=== PATIENT | female | born 1945 | race Caucasian/White ===

== ENCOUNTER 2016-11-09 08:18 | Emergency (ER) | payer BC ==
[~2016-11-09] VITALS: Ht 162.6 cm; Wt 65.0 kg
[~2016-11-09 08:18] MED LIST: RISE150T PO
[2016-11-09 08:22] VITALS: TEMP 36.9; Ht 162.6 cm; Wt 65.0 kg
[2016-11-09] MEDS ORDERED: PROM25SU28 PR (08:40)
[2016-11-09] MEDS ORDERED: KETOROLAC TROMETHAMINE 30 MG/ML VIAL IV STA (08:43)
[2016-11-09] MEDS ORDERED: DiphenhydrAMINE HCL 50 MG/ML VIAL IV STA (08:43)
[2016-11-09] MEDS ORDERED: SODIUM CHLORIDE 0.9% 1000ML 1,000 ML IV STA (08:43)
[2016-11-09] MEDS ORDERED: PROMETHAZINE HCL INJ 25 MG in SODIUM CHLORIDE 0.9% 50ML 50 ML IV STA (08:43)
[2016-11-09] MEDS ORDERED: DEXAMETHASONE SOD INJ 10 MG/ML VIAL IV ONE (08:45)
--- NOTE | 2016-11-09 08:59 | EMERGENCY ROOM VISIT NOTE ---
ED Visit Note First contact with patient: 08:28 I have seen and examined this patient with Dahiana Lorenz and generally agree with the treatment plan as discussed. Problem List Medical Problems: (1) Bladder cancer Status: Resolved Current/Historical Medications Scheduled Aspirin (Aspirin Ec), 81 MG PO DAILY Citalopram (Celexa *), 20 MG PO QPM Fesoterodine Fumarate (Toviaz), 4 MG PO DAILY Simvastatin (Simvastatin), 20 MG PO DAILY Scheduled PRN Ipratropium [place] (Atrovent Nasal [place] 0.06% *), 1-2 SPRAYS CARLEE DAILY PRN for ALLERGIES Promethazine Hcl (Phenergan Suppository), 25 MG ID Q6H PRN for Nausea Rizatriptan Benzoate (Maxalt-Hydraulic Jack Operator), 10 MG PO DAILY PRN for Migraine Allergies Coded Allergies: Gabapentin (Verified Allergy, Unknown, disoriented, 11/09/16) Topiramate (Verified Allergy, Unknown, disorientation, 11/09/16) Codeine (Unverified Adverse Reaction, Mild, NAUSEA, 11/09/16) Vital Signs Date Time Temp Pulse Resp B/P Pulse Ox O2 Delivery O2 Flow Rate FiO2 11/09/16 08:22 36.9 104 18 135/84 99 Room Air Departure Information Referrals Juan Daniel Sibley M.D. (PCP) Patient Instructions A Signature Page, [facility]
[2016-11-09] MEDS ORDERED: CLX20 PO (09:25)
--- NOTE | 2016-11-09 09:36 | DIAGNOSTIC IMAGING REPORT ---
CT HEAD WITHOUT CONTRAST (CT) CLINICAL HISTORY: Severe headache COMPARISON STUDY: MRI the brain dated 03/27/2009 TECHNIQUE: Axial CT of the brain is performed from the vertex to the skull base. IV contrast was not administered for this examination. CT DOSE: 638.56 mGycm FINDINGS: No intra or extra-axial mass lesions are visualized. There is no CT evidence of acute cortical infarction. There is no evidence of midline shift. There is no acute hemorrhage. No calvarial fractures are visualized. There are minimal white matter hypodensities likely on a small vessel basis. There is no evidence of pathologic ventricular dilatation. There is no evidence of acute sinusitis IMPRESSION: No acute intracranial findings Electronically signed by: Jayden Reyez M.D. 11/09/2016 9:34 AM Dictated Date/Time: 11/09/2016 9:33 AM
[2016-11-09] MEDS ORDERED: RIZA10TA19 PO (09:45)
[2016-11-09] MEDS ORDERED: ATRIN6 NAE (11:17)
[2016-11-09] MEDS ORDERED: MECL1TAB42 PO (11:54)
--- NOTE | 2016-11-09 11:57 | EMERGENCY ROOM VISIT NOTE ---
History First contact with patient: 08:28 Chief Complaint: HEADACHE Stated Complaint: MIGRAINE History of Present Illness The patient is a 71 year old female who presents to the Emergency Room with complaints of headache which started yesterday. She states the headache started behind her right eye and now has migrated above the right eye and across the forehead. Headache started this morning at 5 AM. The patient also states that she was very dizzy yesterday and has slight dizziness today. She also admits to nausea but no vomiting. The patient denies any other visual changes. The patient denies any recent URI symptoms. The patient denies any abdominal pain. The patient has a history of migraine headaches. She states normally if she takes her Maxalt it relieves her headache. She took it immediately without any results. She did take a second dose without any relief. She also took some Pepto-Bismol for her nausea yesterday and took Phenergan suppository this morning but then she states that she moved her bowels immediately so she took a second Phenergan suppository. The patient does state that she is feeling slightly better than she was earlier. The patient states this is not the worst headache of her life but it is more severe than her normal migraines. Review of Systems 10 system review was performed and was negative unless stated otherwise history of present illness. Past Medical/Surgical History Medical Problems: (1) Bladder cancer Family History Diabetes mellitus Heart disease Hypertension Social History Smoking Status: Never Smoker Marital Status: Housing Status: lives with family Current/Historical Medications Scheduled Aspirin (Aspirin Ec), 81 MG PO DAILY Citalopram (Celexa *), 20 MG PO QPM Fesoterodine Fumarate (Toviaz), 4 MG PO DAILY Simvastatin (Simvastatin), 20 MG PO DAILY Scheduled PRN Ipratropium [place] (Atrovent Nasal [place] 0.06% *), 1-2 SPRAYS CARLEE DAILY PRN for ALLERGIES Promethazine Hcl (Phenergan Suppository), 25 MG LA Q6H PRN for Nausea Rizatriptan Benzoate (Maxalt-Professor [employer] Art History), 10 MG PO DAILY PRN for Migraine Allergies Coded Allergies: Gabapentin (Verified Allergy, Unknown, disoriented, 11/09/16) Topiramate (Verified Allergy, Unknown, disorientation, 11/09/16) Codeine (Unverified Adverse Reaction, Mild, NAUSEA, 11/09/16) Physical Exam Vital Signs Date Time Temp Pulse Resp B/P Pulse Ox O2 Delivery O2 Flow Rate FiO2 11/09/16 11:20 76 18 139/95 11/09/16 10:19 143/92 11/09/16 09:40 97 20 158/138 98 Room Air 11/09/16 08:22 36.9 104 18 135/84 99 Room Air Physical Exam GENERAL: 71-year-old white female appears uncomfortable secondary to migraine headache. MENTAL STATUS: Patient is alert and oriented x3 EYES: PERRLA. EOMs intact. EARS: Canals clear. TMs without fluid level noted. NECK: Supple, no lymphadenopathy noted. No carotid bruits noted. LUNGS: Clear auscultation without wheezes rales or rhonchi. CARDIAC: Regular rate and rhythm without murmur. Pulses is full and equal throughout. ABDOMEN: Positive bowel sounds all 4 quadrants. Soft, nontender to palpation without organomegaly or masses. NEURO:Cranial nerves two through 12 intact. Cerebellar function intact with [id number]. Fine motor intact with alternating finger motions. Medical Decision & Procedures ER Provider Diagnostic Interpretation: CT HEAD WITHOUT CONTRAST (CT) CLINICAL HISTORY: Severe headache COMPARISON STUDY: MRI the brain dated 03/27/2009 TECHNIQUE: Axial CT of the brain is performed from the vertex to the skull base. IV contrast was not administered for this examination. CT DOSE: 638.56 mGycm FINDINGS: No intra or extra-axial mass lesions are visualized. There is no CT evidence of acute cortical infarction. There is no evidence of midline shift. There is no acute hemorrhage. No calvarial fractures are visualized. There are minimal white matter hypodensities likely on a small vessel basis. There is no evidence of pathologic ventricular dilatation. There is no evidence of acute sinusitis IMPRESSION: No acute intracranial findings Electronically signed by: Jayden Reyez M.D. 11/09/2016 9:34 AM Dictated Date/Time: 11/09/2016 9:33 AM Medications Administered Medications (Trade) Dose Ordered Sig/Patti Route Start Time Stop Time Status Last Admin Dose Admin Sodium Chloride 1,000 ml @ 999 mls/hr Q1H1M STAT IV 11/09/16 08:43 11/09/16 09:43 DC 11/09/16 09:00 999 MLS/HR Promethazine HCl/ Sodium Chloride (Phenergan Inj/ Nss 50ml) 51 ml @ 204 mls/hr NOW STAT IV 11/09/16 08:43 11/09/16 08:57 DC 11/09/16 08:57 204 MLS/HR Ketorolac Tromethamine (Toradol Inj) 30 mg NOW STAT IV 11/09/16 08:43 11/09/16 08:48 DC 11/09/16 08:59 30 MG Diphenhydramine HCl (Benadryl Inj) 25 mg NOW STAT IV 11/09/16 08:43 11/09/16 08:48 DC 11/09/16 08:58 25 MG Dexamethasone Sodium Phosphate (Decadron Inj) 10 mg NOW ONCE IV 11/09/16 08:45 11/09/16 08:48 DC 11/09/16 08:59 10 MG ED Course The patient was evaluated. IV access was obtained. Patient was given 1 L normal saline wide-open. The patient was given Toradol 30 mg IV, Phenergan 25 mg IV, Benadryl 25 mg IV and Decadron [address] of the head was ordered and interpreted by the radiologist as above without any acute findings. When the patient came back from her CAT scan the nurse felt that her speech was a lot slower. I reevaluated the patient. She did not have any neurologic deficit. Strength was normal bilateral upper and lower extremities. The patient was independently evaluated by Dr. Stark who agreed with treatment plan. She will be observed to see if she has any worsening of her symptoms. Symptoms possibly could be coming from the medications. Patient was observed for an additional 90 minutes without any worsening of symptoms. The patient's headache and nausea had completely resolved. She was having dizziness but due to her slurred speech slow speech from prior medication she received I do not wish to give her any additional meclizine. The patient was discharged home in stable condition. Medical Decision Differential diagnosis include migraine headache, neoplasm, acoustic neuroma, benign positional vertigo, eustachian tube dysfunction I felt that the patient's leg symptoms after receiving the Phenergan were due to the medication. Also due to the multiple medications that she received including Phenergan and Benadryl her speech was slow but she did not have any neurologic deficit or any facial droop therefore the patient was observed for 90 minutes without any worsening of symptoms. Impression Primary Impression: Headache Additional Impression: Vertigo Departure Information Dispostion Home / Self-Care Condition GOOD Prescriptions Meclizine Hcl (MECLIZINE HCL) 25 Mg Tab 1 TAB PO TID Y for Dizziness or Vertigo for 10 Days, #30 TAB Prov: Dahiana Lorenz PA-C 11/09/16 Referrals Juan Daniel Sibley M.D. (PCP) Forms HOME CARE DOCUMENTATION FORM, IMPORTANT VISIT INFORMATION Patient Instructions A Signature Page, ED Headache Migraine, ED Vertigo Unspecified, [facility] Additional Instructions Do not move your head quickly. Make sure used stand up slowly. Take meclizine every 8 hours as needed for dizziness. If you have any worsening of symptoms such as facial droop, extremity weakness return to ER immediately. Follow-up with your family doctor in one to 2 days for recheck.
[2016-11-09 12:32] VITALS: BP 137/84; PULSE 71; O2SAT 96
[2016-11-09] MEDS ORDERED: FESO4TAB PO (15:59)
[2016-11-09] MEDS ORDERED: SIMV-151 PO (15:59)
[2016-11-09] MEDS ORDERED: ASPI81TA28 PO (16:03)
== END 2016-11-09 12:34 | disposition home or self-care (01) ==
LOC: C.EDB 08:20 → C.EDA 12:34
DX: G43.909 Migraine, unspecified, not intractable, without status migrainosus (principal); R42 Dizziness and giddiness; Z85.51 Personal history of malignant neoplasm of bladder; Z79.82 Long term (current) use of aspirin; Z83.3 Family history of diabetes mellitus; Z82.49 Family history of ischemic heart disease and other diseases of the circulatory system

== ENCOUNTER → 2016-11-18 | Outpatient (CLI) | payer BC ==
[~2016-11-18] MED LIST changes: +ASPI81TA28 PO; +ATRIN6 NAE; +CLX20 PO; +FESO4TAB PO; +GADAVIST IV PRN; +MECL1TAB42 PO; +PROM25SU28 PR; -RISE150T PO; +RIZA10TA19 PO; +SIMV-151 PO
--- NOTE | 2016-11-18 10:04 | DIAGNOSTIC IMAGING REPORT ---
MRI OF THE BRAIN WITHOUT AND WITH IV CONTRAST CLINICAL HISTORY: Migraine headaches. Vertigo. COMPARISON STUDY: MRI of the brain March 27, [address] November 09, 2016. TECHNIQUE: Utilizing a 0.7 Camille open magnet and dedicated coil, multiplanar, multiecho imaging of the brain was performed pre and postcontrast administration. IV administration of 6.5 mL of Gadavist contrast was uneventful. FINDINGS: There are no areas of restricted diffusion. No acute intracranial hemorrhage, midline shift or mass effect is present. Brain volume is normal. Ventricular system is normal. The basilar cisterns are patent. There are no extra-axial collections. Flow-voids for the major intracranial vessels are present. No intracranial mass or pathologic enhancement is present. No areas of signal abnormality are identified. There is minimal mucosal thickening of the left maxillary sinus. There is no fluid within the mastoid air cells. Calvarial signal is maintained. IMPRESSION: Unremarkable MRI of the brain. Electronically signed by: Terry Goldberg M.D. 11/18/2016 10:02 AM Dictated Date/Time: 11/18/2016 9:58 AM
== END | disposition home or self-care (01) ==
LOC: C.OPENMRI 08:55
PROVIDERS: ATTEND Internal Medicine Geriatric Medicine
DX: R51 Headache (principal)

== ENCOUNTER → 2017-03-23 | Outpatient (CLI) | payer BC ==
[~2017-03-23] VITALS: Ht 163.8 cm; Wt 68.3 kg
[~2017-03-23] MED LIST changes: -GADAVIST IV PRN; -MECL1TAB42 PO
[2017-03-23 12:29] VITALS: BP 135/79; PULSE 90; Ht 163.8 cm; Wt 68.3 kg
== END | disposition home or self-care (01) ==
LOC: C.NEUR 11:50
PROVIDERS: ATTEND Internal Medicine Pulmonary Disease
DX: R40.0 Somnolence (principal); G47.30 Sleep apnea, unspecified

== ENCOUNTER → 2017-05-11 | Outpatient (CLI) | payer BC ==
--- NOTE | 2017-05-12 07:32 | PAP/PSG TECHNICIAN REPORT ---
[facility] Touch Up Worker Polysomnogram Report Study name: None Report date: 05/12/2017 Study date: 05/11/2017 Referring Physician: Ricco Cortés M.D. Name: JUAN LUIS OSORIOLINE Interpreting Physician: Ricco Cortés M.D. Date of : 1945 Touch Up Worker: Laura Kendall RPS. Sex: Female Age: 72 StudyType: PSG PAP Weight: 150.5 lbs Height: 72 years, Height 5' 4.5" Neck Circum: 14 inches BMI: 25.43 Medications: Aspirin 81 mg, Atorvastatin, Citalopram, Ipratropium, Lorazepam, Probiotic, Promethagan, Rizatriptan, Simvastatin, Terbinafine, Toviaz, Vitamin D Patient History 72 yr. old female here for a new titration sleep study. Patient had a HST that showed an MONIQUE of 37.7 average over three nights. Patients [place] Sleepiness Scale Score 10/24. Parameters Monitored NPSG: E1-M2, E2-M1, Fp1-M2, Fp2-M1, F3-M2, F4-M2, F4-M1, C3-M2, C4-M2, C4-M1, O1-M2, O2-M2, O2-M1, T3-M2, T4-M1, P3-M2, P4-M1, CHIN1, CHIN2, HR, EKG, Legs, PFLOW, SNOR, FLOW, CFLOW, Tidal Volume, THOR, ABDO, SpO2, PLTH, CPRESS, ETCO2 Wave, ETCO2, pH Sleep Architecture Sleep Stages Time at Lights Off 9:57:20 PM STAGES Time (min.) TST (%) Time at Lights On 5:20:20 AM Wake 74.5 -- Total Recording Time (TRT) 444.00 min. N1 66.5 18 Total Sleep Period (TSP) 434.0 min. N2 251.5 68 Total Sleep Time (TST) 368.5min. N3 27.5 7 Awake Time 74.5 min. REM 23.0 6 Wake after Sleep Onset 65.5 min. Sleep Efficiency (SE) 83 % Sleep Onset Latency (REY) 9.0 min. Number of Stage 1 Shifts None Awakenings 33 Stage Changes 162 Number of REM periods 1 REM 23.0 6 REM Latency 171.0 min. NREM 345.5 94 Body Position Analysis Supine Right Left Side Prone Vertical Total Sleep Time (min.) 18.0 213.2 145.6 358.80 0.0 15.7 Total Sleep Time (%) 2% 58% 40% 97 0% 100% Total Sleep Time REM (min.) 0.0 23.0 0.0 None 0.0 0.0 Total Sleep Time NREM (min.) 7.5 190.2 145.6 None 0.0 2.2 Intermittent Wake (min.) 10.5 38.9 11.5 None 0.0 13.5 Total Sleep Period (%) 4% None None None None None Arousals Myoclonus (PLM) * Events Count Index Events Count Index Spontaneous 8 1 Events Awake (PLMW) 113 91.0 Respiratory 3 0.7 Events Asleep w/ Arousal (PLMA) 95 15.5 PLM 92 15 Events Asleep w/o Arousal (PLMS) 166 27.0 Snoring 8 1 Total Asleep 261 42.5 Total 111 18 Total 374 51 Respiratory Analysis * CA OA MA CH H RERA Total Count 22 2 0 0 55 0 79 Index 3.6 0.3 0.0 0 9.0 0 12.9 Mean Duration 16.8 14.0 0.0 0.00 18.2 0.0 17.7 Longest Duration 25.5 17.3 0.0 0.00 0.0 0.0 29.8 Respiratory Event Summary Total Supine ~Supine Right Left Prone REM NREM Apneas Count 24 0 24 1 23 N/A 1 23 Index 3.9 0 4 0.3 9.5 N/A 3 4 Hypopneas (4% Desat) Count 55 1 54 19 35 N/A 1 54 Index 9.0 8.0 9 5.3 14.4 N/A 2.6 9.4 Apneas & All Hypopneas Count 79 1 78 20 58 N/A 2 77 Index 12.9 8 13 6 24 N/A 5.2 13.4 Respiratory Events (Aurist+All Hyp+RERA) Count 79 1 78 20 58 N/A 2 77 Index 12.9 8 13 5.6 23.9 N/A 5.2 13.4 Respiratory Related Arousal Count 3 1 3 0 3 N/A 0 4 Index 0.7 8 0 0 1 N/A 0 1 Snoring Analysis Supine Right Left Prone REM NREM Total Snore duration 1.4 min Snores count 1 20 8 N/A 0 29 29 Snore mean duration 2.9 Sec Snores index 8 6 3 N/A 0.0 5.0 4.7 TST with snoring (%) 0.4% Desaturation Event Summary: Minimum %SpO2 Event Count Mean/Min/Max Duration(sec.) Desaturation Index % Time In Bed > 90 125 23.1 / 9.5 / 60.0 17.7 95.7 86 - 90 6 16.4 / 11.0 / 27.8 18.9 4.3 81 - 85 0 N/A 0.0 0.0 76 - 80 0 N/A 0.0 0.0 71 - 75 0 N/A 0.0 0.0 66 - 70 0 N/A 0.0 0.0 61 - 65 0 N/A 0.0 0.0 56 - 60 0 N/A 0.0 0.0 51 - 55 0 N/A 0.0 0.0 < 50 0 N/A 0.0 0.0 Total REM NREM Awake <50% 0.0 min. 0.0 min. 0.0 min. 0.0 min. 51 - 60% 0.0 min. 0.0 min. 0.0 min. 0.0 min. 61 - 70% 0.0 min. 0.0 min. 0.0 min. 0.0 min. 71 - 80% 0.0 min. 0.0 min. 0.0 min. 0.0 min. 81 - 90% 19.1 min. 0.0 min. 16.1 min. 3.0 min. 91 - 100% 423.6 min. 23.0 min. 329.5 min. 71.2 min. Average 93 93 93 94 Minimum SpO2 86 91 86 87 Desaturation Event Index 16.9 5.2 16.7 22.6 # Desat. Events below 89% 16 N/A 15 1 Time(%) with Saturation below 89% 0.7 0.0 0.7 0.0 Time(min.) with Saturation below 89% 3.1 0.0 2.9 0.1 Time (mins) REM (mins) NREM (mins) % of TST SpO2 Below 90% 55 N/A N55 2.0 SpO2 Below 88% 5 0 0 0 Heart Rate Analysis Min (bpm) Max (bpm) Average (bpm) Awake 55 92 65 NREM 53 77 60 REM 60 75 67 Overall 53 77 61 Supplemental O2 Values Minimum O2 level: None Value Start Time End Time Touch Up Worker Comments Mrs. Osorio slept in the right, left, and supine positions. No cardiac arrhythmia. Frequent PLMs noted. No bruxism noted. CPAP was initiated at +4 CMH2O room air and up-titrated to a level of + 9 CMH2O Cflex 2 , which nearly eliminated all respiratory events and snoring. A ResMed Ayala FX nasal mask was used during titration. Mrs. Osorio did not wake to use the restroom during the night. Mrs. Osorio stated, "(Example) I did not sleep as well as I do when I am in my own bed". The final report will be interpreted and signed by a sleep physician. The completed physician report will then be placed in the patient medical record. Therapy Event: Therapy (cm H20) 4 5 6 7 8 9 Total Time at Pressure (min.) 22.6 12.5 107.8 48.0 180.9 71.2 TST at Pressure (min.) 9.1 12.5 98.3 45.5 150.4 52.7 # Periods 1 1 1 1 1 1 Sleep Onset (min.) 9.0 0.0 0.0 0.0 0.0 0.0 REM Onset (min.) N/A N/A N/A 37.1 0.0 N/A Sleep Efficiency % 40 100 91 94 83 74 Wakefulness (%) 59.7 0.0 8.8 5.2 16.9 26.0 Wakefulness (min.) 13.5 0.0 9.5 2.5 30.5 18.5 NREM 1 (%) 19.9 0.0 17.2 7.3 15.5 16.9 NREM 1 (min.) 4.5 0.0 18.5 3.5 28.0 12.0 NREM 2 (%) 20.4 98.7 62.6 55.4 55.2 57.1 NREM 2 (min.) 4.6 12.4 67.4 26.6 99.8 40.7 NREM 3 (%) 0.0 1.3 11.4 9.4 5.8 0.0 NREM 3 (min.) 0.0 0.2 12.3 4.5 10.5 0.0 REM (%) 0.0 0.0 0.0 22.7 6.7 0.0 REM (min.) 0.0 0.0 0.0 10.9 12.1 0.0 # Arousals 1 0 9 5 54 42 Arousal Index 6.6 0.0 5.5 6.6 21.5 47.9 # Snore 0 1 4 6 11 7 Snore Index 0.0 4.8 2.4 7.9 4.4 8.0 AHI 85.6 71.7 15.9 6.6 6.0 5.7 AHI Supine N/A N/A N/A N/A N/A 8.0 AHI Non-Supine 85.6 71.7 15.9 6.6 6.0 5.3 NREM AHI 85.6 71.7 15.9 6.9 6.1 5.7 REM AHI N/A N/A N/A 5.5 5.0 N/A RDI 85.6 71.7 15.9 6.6 6.0 5.7 # Obstructive 0 0 2 0 0 0 # Central Ap 6 8 6 1 0 1 # Mixed 0 0 0 0 0 0 # Hypopneas 7 7 18 4 15 4 RERAS 0 0 0 0 0 0 Total Respiratory Events 13 15 26 5 15 5 Time Below SpO2 89.00% (min.) 1.4 1.4 0.2 0.0 0.0 0.0 Mean NREM SpO2 (%) 90 91 93 93 93 94 Mean REM SpO2 (%) N/A N/A N/A 93 93 N/A Mean Sleep SpO2 (%) 90 91 93 93 93 94 Min NREM SpO2 (%) 86 87 88 89 89 89 Min REM SpO2 (%) N/A N/A N/A 91 91 N/A Position Supine (min.) 0.0 0.0 0.0 0.0 0.0 7.5 Position Non-supine (min.) 9.1 12.5 98.3 45.5 150.4 45.2 LM Index Sleep 6.6 0.0 23.2 17.2 61.4 62.7 LM Index NREM 6.6 0.0 23.2 22.6 66.4 62.7 LM Index REM N/A N/A N/A 0.0 5.0 N/A Mean Heart Rate (bpm) 60 59 60 64 61 59 Min Heart Rate (bpm) 57 56 55 57 55 53
--- NOTE | 2017-05-14 08:44 | Sleep Study ---
Sleep Study Report Date of Service: May 11, 2017 Sleep Study Report Clinical data: Patient is a 72-year-old female with a BMI of 25.4 with severe sleep apnea documented on a home sleep apnea test with an MONIQUE of 37.7. Her [place] sleepiness score was 10/24. Sleep architecture: Total sleep time was 368.5 minutes divided between 345.5 minutes of non-REM sleep and 23 minutes of REM sleep. Sleep latency was 9 minutes. REM latency was delayed at 171 minutes. Sleep efficiency was 83 percent. Wake after sleep onset was 65.5 minutes. Sleep consisted of stage N1 18 percent, stage N2 68 percent, stage N3 7 percent, and REM 6 percent. Arousal data: 111 arousals were recorded for an index of 18 per hour. Ninety- two were due to PLMS events. PLM data: Significant PLMD was noted. There are 261 limb movements during sleep noted for an index of 42.5 per hour with an arousal index of 15.5 per hour Respiratory data: The AHI was 12.9. There were 22 central and 2 obstructive apneic episodes. The longest episode of apnea was 25.5 seconds. There were 55 hypopneas, the mean duration of which was 18.2 seconds. Oximetry data: Mild nocturnal hypoxemia was seen. Oxygen roxy was 86 percent during non-REM sleep. Mean saturation was 93 percent. Time below 80 percent was 5 minutes. EKG: Heart rate ranged from 53 to 77 beats per minute. No arrhythmias were noted. Treatment summary: The patient slept in the right, left, and supine positions. A ResMed Ayala FX nasal mask was used. The patient was titrated up to a final pressure of 9 centimeters water C flex 2. At that pressure setting, the patient slept for 52.7 minutes with an AHI of 5.7. Impression: Severe sleep apnea corrected with CPAP 9 centimeters water pressure C flex 2 utilizing a ResMed Ayala FX nasal mask. Recommendations: The patient should be started on the above-noted treatment regimen and seen back for follow-up within 90 days document efficacy and compliance. Copies To 1: Juan Daniel Sibley M.D.
== END | disposition home or self-care (01) ==
LOC: C.NEUR 21:00
PROVIDERS: ATTEND Internal Medicine Pulmonary Disease
DX: R40.0 Somnolence (principal); G47.30 Sleep apnea, unspecified

== ENCOUNTER → 2017-05-25 | Outpatient (CLI) | payer BC ==
[~2017-05-25] VITALS: Ht 163.8 cm; Wt 65.4 kg
[2017-05-25 14:50] VITALS: BP 122/83; PULSE 73; Ht 163.8 cm; Wt 65.4 kg
== END | disposition home or self-care (01) ==
LOC: C.NEUR 14:41
PROVIDERS: ATTEND Internal Medicine Pulmonary Disease
DX: G47.30 Sleep apnea, unspecified (principal); R53.83 Other fatigue

== ENCOUNTER → 2017-07-12 | Outpatient (CLI) | payer BC ==
[2017-07-12 15:46] LABS: BASO % 0.8 %; BASO ABS # 0.04 K/uL (0-0.2); COMPLETE YES; HEMATOCRIT 38.9 % (37-47); IG% 0.2 %; LYMPH % 29.1 %; LYMPH ABS # 1.46 K/uL (1.2-3.4); MEAN CELL VOLUME 79.4 fL (80-100); MEAN CORPUSCULAR HEMOGLOBIN 26.3 pg (25-34); MEAN CORPUSCULAR HGB CONC 33.2 g/dl (32-36); MEAN PLATELET VOLUME 10.1 fL (7.4-10.4); MONO % 4.4 %; NEUT % 63.5 %; PLATELET COUNT 164 K/uL (130-400); WHITE BLOOD COUNT 5.01 K/uL (4.8-10.8)
[2017-07-12 16:08] LABS: BLOOD UREA NITROGEN 25 mg/dl (7-18); BUN/CREATININE RATIO 29.5 (10-20); CALCIUM 9.2 mg/dl (8.5-10.1); CARBON DIOXIDE 30 mmol/L (21-32); CHLORIDE 107 mmol/L (98-107); CREATININE 0.86 mg/dl (0.60-1.20); GLUCOSE 97 mg/dl (70-99); SODIUM 141 mmol/L (136-145)
== END | disposition home or self-care (01) ==
LOC: C.LAB 14:38
PROVIDERS: ATTEND Urology
DX: Z01.812 Encounter for preprocedural laboratory examination (principal); Z85.51 Personal history of malignant neoplasm of bladder; N35.9 Urethral stricture, unspecified

== ENCOUNTER → 2017-08-03 | Outpatient (CLI) | payer BC ==
[~2017-08-03] VITALS: Ht 163.8 cm; Wt 63.3 kg
[2017-08-03 13:51] VITALS: BP 115/74; PULSE 73; Ht 163.8 cm; Wt 63.3 kg
== END | disposition home or self-care (01) ==
LOC: C.NEUR 11:55
PROVIDERS: ATTEND Physician Assistant Medical
DX: G47.30 Sleep apnea, unspecified (principal); R53.83 Other fatigue; R68.2 Dry mouth, unspecified; E55.9 Vitamin D deficiency, unspecified; R40.0 Somnolence; M81.0 Age-related osteoporosis without current pathological fracture

== ENCOUNTER → 2017-09-20 | Outpatient (CLI) | payer BC ==
[2017-09-20 10:56] LABS: AST/SGOT 19 U/L (15-37); BLOOD UREA NITROGEN 24 mg/dl (7-18); BUN/CREATININE RATIO 28.5 (10-20); CALCIUM 8.9 mg/dl (8.5-10.1); CARBON DIOXIDE 30 mmol/L (21-32); CHLORIDE 105 mmol/L (98-107); CHOLESTEROL 184 mg/dl (0-200); CREATININE 0.84 mg/dl (0.60-1.20); GLUCOSE 78 mg/dl (70-99); SODIUM 141 mmol/L (136-145)
[2017-09-20 11:06] LABS: ALB/GLOB RATIO 1.1 (0.9-2); ALKALINE PHOSPHATASE 48 U/L (45-117); ALT/SGPT 39 U/L (12-78); HDL CHOLESTEROL 62 mg/dl; LDL CHOLESTEROL CALCULATED 88 mg/dl; TRIGLYCERIDES 172 mg/dl (0-150); VERY LOW DENSITY LIPOPROT CALC 34 mg/dl
== END | disposition home or self-care (01) ==
LOC: C.LABBC 08:21
PROVIDERS: ATTEND Internal Medicine Geriatric Medicine
DX: M81.0 Age-related osteoporosis without current pathological fracture (principal); G43.909 Migraine, unspecified, not intractable, without status migrainosus; K76.0 Fatty (change of) liver, not elsewhere classified; E78.5 Hyperlipidemia, unspecified; E55.9 Vitamin D deficiency, unspecified; G47.30 Sleep apnea, unspecified

== ENCOUNTER → 2017-09-28 | Outpatient (CLI) | payer BC ==
--- NOTE | 2017-09-28 15:09 | MAMMOGRAPHY REPORT ---
BILATERAL DIGITAL SCREENING MAMMOGRAM WITH CAD: 09/28/2017 CLINICAL HISTORY: Routine screening. Patient has no complaints. TECHNIQUE: Bilateral CC and MLO views were obtained. Current study was also evaluated with a Compute r Aided Detection (CAD) system. COMPARISON: Comparison is made to exams dated: 09/17/2015 mammogram, 09/13/2014 mammogram, 3 mammogram, 09/07/2012 mammogram, 09/07/2011 mammogram, and 09/05/2010 mammogram - [facility]. BREAST COMPOSITION: There are scattered areas of fibroglandular density in both breasts. FINDINGS: There are stable scattered and grouped benign-appearing punctate macro calcifications bilat erally. Stable focal asymmetry in the right upper outer quadrant. No new suspicious mass, netezza architect ural distortion or cluster of microcalcifications is seen. IMPRESSION: ACR BI-RADS CATEGORY 1: NEGATIVE There is no mammographic evidence of malignancy. A 1 year screening mammogram is recommended. The pa tient will receive written notification of the results. Approximately 10% of breast cancers are not detected with mammography. A negative mammographic report should not delay biopsy if a clinically suggestive mass is present. Minna Sanches M.D. ay/:09/28/2017 12:48:03 Hydraulic Lift Operator: Vidhya ROMERO(Marga)(Roopa)(BD), [facility] letter sent: Normal 1/2 BI-RADS Code: ACR BI-RADS Category 1: Negative
== END | disposition home or self-care (01) ==
LOC: C.MAMM 09:15
PROVIDERS: ATTEND Obstetrics & Gynecology
DX: Z12.31 Encounter for screening mammogram for malignant neoplasm of breast (principal)

== ENCOUNTER → 2017-11-09 | Outpatient (CLI) | payer BC ==
[~2017-11-09] VITALS: Ht 162.6 cm; Wt 66.5 kg
[2017-11-09 15:31] VITALS: BP 100/43; PULSE 88; Ht 162.6 cm; Wt 66.5 kg
== END | disposition home or self-care (01) ==
LOC: C.NEUR 14:53
PROVIDERS: ATTEND Physician Assistant Medical
DX: G47.30 Sleep apnea, unspecified (principal)

== ENCOUNTER → 2017-11-22 | Outpatient (CLI) | payer BC | END | disposition home or self-care (01) | LOC: C.MAMM 11:21 | PROVIDERS: ATTEND Internal Medicine Geriatric Medicine | DX: M81.0 Age-related osteoporosis without current pathological fracture (principal) ==